=== PATIENT | female | born 1940 | race Caucasian/White ===

== ENCOUNTER 2018-12-15 18:31 | Inpatient (IN) | payer MEDICARE ==
[2018-12-15 19:18] LABS: #Lymphocytes 0.5 thou/uL (1.20-3.40); #Monocytes 0.2 thou/uL (0.11-0.59); #Neutrophils 2.7 thou/uL (1.40-6.50); %Eosinophils 1.2 % (0.0-10.0); %Lymphocytes 14.4 % (21.0-51.0); %Monocytes 4.4 % (0.0-10.0); Hemoglobin 9.1 g/dL (12.0-16.0); Mean Corpuscular HGB CONC 31.1 g/dL (32.0-36.0); Mean Corpuscular Hemoglobin 28.4 pg (27.0-31.0); Mean Corpuscular Volume 91.2 fL (78.0-98.0); Mean Platelet Volume 11.5 fL (7.4-10.4); Platelet Count 27 thou/uL (130-400); RBC Distribution Width 15.8 % (11.5-14.5); White Blood Cell (WBC) Count 3.3 thou/uL (4.8-10.8)
[2018-12-15 19:29] LABS: ALT (SGPT) Less than 7 U/L (8-55); AST (SGOT) 19 U/L (5-34); Albumin 3.3 g/dL (3.4-4.8); Alkaline Phosphatase 69 U/L (40-150); Anion Gap 15 mmol/L (10-20); BUN (Urea Nitrogen) 37 mg/dL (9.8-20.1); Bilirubin, Total 0.6 mg/dL (0.2-1.2); Calc. Creatinine Clearance 0 mL/min (70-130); Calcium 9.7 mg/dL (7.8-10.44); Carbon Dioxide 34 mmol/L (23-31); Chloride 93 mmol/L (98-107); Estimated GFR-MDRD 32; Globulin 3.6 g/dL (2.4-3.5); Glucose 87 mg/dL (83-110); Protein, Total 6.9 g/dL (6.0-8.3); Sodium 138 mmol/L (136-145)
[2018-12-15 19:31] LABS: Reflex for Review?? YES
[2018-12-15 19:32] LABS: Anisocytosis SLIGHT = 6-15 cells (100X) (0-5/hpf); MDiff Complete? YES; Ovalocytes SLIGHT = 2-5 cells (100X) (0-1/hpf); Platelet Morphology Comment Appears Decreased; Polychromasia SLIGHT = 2-3 cells (100X) (0-2/hpf)
[2018-12-16] MEDS ORDERED: Dextrose 5% in Water 1,000 ML IV PRN (00:38)
[2018-12-16] MEDS ORDERED: Ondansetron PF 4 MG/2 ML Vial IVP PRN (00:38)
[2018-12-16] MEDS ORDERED: Acetaminophen 500 MG TAB PO PRN ×2 (00:38→01:43)
[2018-12-16] MEDS ORDERED: hydrALAZINE 20 MG/ML VIAL SLOW IVP PRN (00:38)
[2018-12-16] MEDS ORDERED: Dextrose 50% Abboject 50 ML SYRINGE SLOW IVP PRN (00:38)
[2018-12-16] MEDS ORDERED: Ondansetron ODT 4 MG TAB PO PRN (00:38)
[2018-12-16] MEDS: Sodium Chloride 0.9% 1,000 ML IV SCH ×2 (00:56→10:05)
[2018-12-16 00:59] VITALS: BMI 23.9
[2018-12-16 06:21] LABS: Burr Cells SLIGHT = 2-5 cells (100X) (0-1/hpf); Eosinophils 8 % (0-10); Hemoglobin 8.1 g/dL (12.0-16.0); Hypochromia SLIGHT = 6-15 cells (100X) (0-5/hpf); Lymphocytes 30 % (21-51); MDiff Complete? YES; Mean Corpuscular Hemoglobin 27.5 pg (27.0-31.0); Mean Corpuscular Volume 91.7 fL (78.0-98.0); Mean Platelet Volume 12.2 fL (7.4-10.4); Monocytes 2 % (0-10); Neutrophil 60 % (42-75); Platelet Count 25 thou/uL (130-400); Platelet Morphology Comment Appears Decreased; RBC Distribution Width 15.8 % (11.5-14.5); Red Blood Cell (RBC) Count 2.94 mill/uL (4.20-5.40); White Blood Cell (WBC) Count 2.6 thou/uL (4.8-10.8)
[2018-12-16 06:25] LABS: Reticulocyte Count 1.7 % (0.5-1.5)
[2018-12-16 06:32] LABS: Anion Gap 15 mmol/L (10-20); BUN (Urea Nitrogen) 36 mg/dL (9.8-20.1); Calc. Creatinine Clearance 32 mL/min (70-130); Calcium 8.9 mg/dL (7.8-10.44); Carbon Dioxide 31 mmol/L (23-31); Chloride 98 mmol/L (98-107); Estimated GFR-MDRD 39; Glucose 70 mg/dL (83-110); Iron 42 ug/dL (50-170); Iron Binding Capacity, Total 135 mcg/dL (265-497); Potassium 3.5 mmol/L (3.5-5.1); Sodium 140 mmol/L (136-145)
[2018-12-16 06:35] LABS: Iron 42 ug/dL (50-170); Iron Binding Capacity, Total 133 mcg/dL (265-497)
--- NOTE | 2018-12-16 08:20 | HP ---
PRIMARY CARE PROVIDER: Dr. Mims. CHIEF COMPLAINT: Abnormal labs. HISTORY OF PRESENT ILLNESS: This is a 78-year-old female, who presents to [facility] and transferred from [facility] where the patient is currently receiving physical therapy after a recent hospital stay at [facility] in [place], [place]. The patient apparently was treated for CHF exacerbation and deemed an appropriate candidate for ongoing skilled care. The patient states she has been at the [facility] approximately 2 weeks receiving daily physical therapy. The patient ambulates with use of a rolling walker with some standby assistance. The patient apparently underwent a routine laboratory evaluation with a CBC showing a platelet count of 27,000. The patient with a longstanding history of thrombocytopenia. However, the extent degree are unclear. The patient admits to some easy bruisability and had been taking chronic methotrexate, Plaquenil and aspirin. The patient was recommended to discontinue the medications within the last 24 hours. The patient denies any spontaneous nosebleeds, gum bleeding or blood in the stool. The patient denies any other specific complaints currently. In the emergency room, CBC was performed showing a platelet count of 27, as well as evidence of pancytopenia. The patient was placed on IV fluids and transferred to the medical floor for further evaluation. PAST MEDICAL HISTORY: 1. Chronic anemia/pancytopenia. 2. Chronic thrombocytopenia. 3. Anxiety. 4. History of asthma. 5. Nonischemic cardiomyopathy with ejection fraction in the 30% to 35% range. 6. Chronic kidney disease stage 3. 7. Chronic obstructive pulmonary disease. 8. Diabetes mellitus type 2. 9. Status post blood transfusion after GI bleed. 10. Hyperlipidemia. 11. Hypertension. 12. Status post pacemaker placement. 13. Hypothyroidism. PAST SURGICAL HISTORY: 1. Status post back surgery in 2013. 2. Status post cardiac catheterization with normal coronary anatomy. 3. Status post cataract extraction. 4. Status post section x3. 5. Status post laser right eye surgery due to retinal detachment. 6. Status post foot surgery with bone spur removal. 7. Status post pacemaker placement with subsequent upgrade to biventricular device. 8. Status post open reduction and internal fixation of femur fracture. 9. Status post total knee arthroplasty. CURRENT MEDICATIONS: 1. Lorazepam 0.5 mg p.o. b.i.d. p.r.n. 2. Tessalon Perles 100 mg p.o. q.8 hours p.r.n. 3. Levothyroxine 88 mcg p.o. daily. 4. Alendronate 70 mg p.o. daily. 5. Aspirin 81 mg p.o. daily. 6. Ferrous sulfate 325 mg p.o. daily. 7. Folic acid daily. 8. Trazodone 50 mg 1 tablet p.o. at bedtime. DISCONTINUED MEDICATION: Methotrexate, discontinued. ALLERGIES: 1. TRAMADOL. 2. TYLENOL NO. 3. 3. HYDROCODONE. FAMILY HISTORY: Mother with cancer. Father with myocardial infarction. SOCIAL HISTORY: The patient resides in [place], [place] with her . Accompanied by her daughter in the hospital. Ambulates with the use of a rolling walker. No current alcohol, tobacco, or illicit drug use. REVIEW OF SYSTEMS: CONSTITUTIONAL: Negative for weight loss or gain, ability to conduct usual activities. SKIN: Negative for rash, itching. EYES: Negative for double vision, pain. ENT/MOUTH: Negative for nose bleeding, neck stiffness, pain, tenderness. CARDIOVASCULAR: Negative for palpitations, dyspnea on exertion, orthopnea. RESPIRATORY: Negative for shortness of breath, wheezing, cough, hemoptysis, fever or night sweats. GASTROINTESTINAL: Negative for poor appetite, abdominal pain, heartburn, nausea, vomiting, constipation, or diarrhea. GENITOURINARY: Negative for urgency, frequency, dysuria, nocturia. MUSCULOSKELETAL: Negative for pain, swelling. NEUROLOGIC/PSYCHIATRIC: Negative for anxiety, depression. ALLERGY/IMMUNOLOGIC: Negative for skin rash, bleeding tendency. Otherwise negative except as stated per HPI. PHYSICAL EXAMINATION: VITAL SIGNS: On admission, blood pressure 145/76, pulse 74, respiratory rate 14, temperature 97.9 degrees Fahrenheit, O2 saturation 100% on 2 L/minute by nasal cannula. GENERAL APPEARANCE: This is a 78-year-old female, alert and oriented x3, pleasant, responsive, in no acute distress. HEENT: Pupils are equal, round, reactive to light and accommodation. Extraocular muscles are intact. No scleral icterus. No conjunctival injection. Nares patent, OP is clear. NECK: Supple. No cervical adenopathy. No thyromegaly. No carotid bruits. No JVD appreciated. Cervical spine with full active and passive range of motion. No meningeal signs noted. CHEST: Lungs are clear to auscultation bilaterally. CARDIOVASCULAR: S1,S2 without noted murmur, rub, or gallop. ABDOMEN: Rounded, soft, nontender, and nondistended. Bowel sounds are positive in all 4 quadrants. There is no hepatosplenomegaly. No abdominal bruits. No rebound or guarding appreciated. EXTREMITIES: Warm and dry with fair turgor. No clubbing, cyanosis, or asymmetric edema appreciated. Pulses palpable distally at the dorsalis pedis, posterior tibial, and popliteal arteries bilaterally. Capillary refill less than 2 seconds. NEUROLOGIC: Cranial nerves 2 through 12 are grossly intact. No focal or lateralizing signs appreciated. No acute focal deficits. Chronic left foot drop. PERTINENT LAB AND X-RAY FINDINGS: Sodium 138, potassium 4.0, chloride 93, CO2 of 34, BUN 37, creatinine 1.55, estimated GFR of 32, glucose 87, calcium 9.7. LFTs within normal limits. CBC showed a white blood cell count of 3.3, hemoglobin 9.1, hematocrit 29.2, MCV 91, platelet count 27 with 80% neutrophils. ASSESSMENT/PLAN: 1. Chronic thrombocytopenia. Review of electronic medical record does show a trend of thrombocytopenia greater than 10 years. Suspect current value related to iatrogenic influence in conjunction with methotrexate and aspirin therapy. We will discontinue methotrexate and aspirin. We will consult Hematology Service for any further recommendations. No current evidence to suggest acute or active blood loss. Repeat platelet count in the a.m. 2. Chronic kidney disease stage 3. We will continue intravenous normal saline at 75 mL/hour. Avoid nephrotoxic agents and limit contrast exposure. Repeat creatinine in the a.m. 3. Pancytopenia. Appears chronic in nature. See #1 above. Repeat CBC in the a.m. Check serum iron, TIBC, ferritin, and reticulocyte count. Check stool guaiacs. 4. Hypothyroidism. Resume levothyroxine 88 mcg daily. 5. Prophylaxis. Sequential compression devices while in bed. PT evaluation for functional assessment. Pepcid 20 mg p.o. b.i.d. CODE STATUS: Full. Surrogate medical decision maker is patient's daughter. Job ID: [id number]
[2018-12-16] MEDS: Famotidine 20 MG TAB PO SCH (10:05)
[2018-12-16 12:49] LABS: #Eosinphils 0.1 thou/uL (0.0-0.7); #Lymphocytes 0.4 thou/uL (1.20-3.40); #Monocytes 0.2 thou/uL (0.11-0.59); %Lymphocytes 16.3 % (21.0-51.0); %Monocytes 6.9 % (0.0-10.0); %Neutrophils 73.8 % (42.0-75.0); Anisocytosis SLIGHT = 6-15 cells (100X) (0-5/hpf); Elliptocytes SLIGHT = 2-5 cells (100X) (0-1/hpf); Hemoglobin 8.7 g/dL (12.0-16.0); Hypochromia SLIGHT = 6-15 cells (100X) (0-5/hpf); MDiff Complete? YES; Mean Corpuscular HGB CONC 30.8 g/dL (32.0-36.0); Mean Corpuscular Hemoglobin 28.2 pg (27.0-31.0); Mean Corpuscular Volume 91.3 fL (78.0-98.0); Mean Platelet Volume 11.1 fL (7.4-10.4); Platelet Count 28 thou/uL (130-400); Platelet Morphology Comment Appears Decreased; RBC Distribution Width 15.9 % (11.5-14.5); Red Blood Cell (RBC) Count 3.08 mill/uL (4.20-5.40); White Blood Cell (WBC) Count 2.7 thou/uL (4.8-10.8)
[2018-12-16 13:15] LABS: Vitamin B12 800 pg/mL (211-911)
--- NOTE | 2018-12-16 15:27 | CON ---
DATE OF CONSULTATION: REASON FOR CONSULT: Pancytopenia. HISTORY OF PRESENT ILLNESS: Ms. Fraser is a pleasant 78-year-old female, who is currently residing at [facility] after a hospitalization for congestive heart failure. Routine CBC drawn on december 01 showed a white count of 5.0 with 74% neutrophils, hemoglobin of 8.6, and platelet count of 123,000. She had repeat CBC drawn on December 15, which showed a drop in all counts with white blood cell of 2.4 with 62% neutrophils, 25% lymphocytes. Her hemoglobin was 8.5 and her platelet count was 27,000. She was sent to the emergency room for this abnormal blood count and admitted for further workup. She denies any bleeding. She does admit to easy bruising. The patient's medical history includes lupus, Sjogren's syndrome, and polyarthritis. She has been on Plaquenil for over 15 years and recently completed methotrexate. The patient was admitted for further workup of her pancytopenia. PAST MEDICAL HISTORY: 1. Asthma. 2. Nonischemic cardiomyopathy. 3. Chronic kidney disease. 4. Chronic obstructive pulmonary disease. 5. Diabetes mellitus type 2. 6. Hyperlipidemia. 7. Hypertension. 8. Hypothyroidism. 9. Chronic thrombocytopenia. 10. Anxiety. 11. Anemia. PAST SURGICAL HISTORY: 1. Multiple orthopedic surgeries. 2. Cardiac catheterization. 3. Eye surgery. 4. Pacemaker placement. ALLERGIES: TO TYLENOL, CODEINE, HYDROCODONE, AND TRAMADOL. CURRENT MEDICATIONS: 1. Alendronate sodium daily. 2. Aspirin 81 mg daily. 3. Ferrous sulfate daily. 4. Folic acid daily. 5. Plaquenil 200 mg daily. 6. Levothyroxine daily. 7. Lorazepam b.i.d. 8. Zaroxolyn daily. 9. Metoprolol tartrate daily. 10. Zoloft daily. 11. Zocor daily. 12. Furosemide daily. 13. Trazodone daily. FAMILY HISTORY: Noncontributory. SOCIAL HISTORY: The patient is , lives with her who is currently in rehab as well. No alcohol, tobacco, or illicit drug use. REVIEW OF SYSTEMS: A 10-point review of systems is negative. PHYSICAL EXAMINATION: VITAL SIGNS: Temperature is 97.6, pulse is 79, respiratory rate 18, BP is 145/ 62. She is 100% on 2 L. GENERAL: This is a frail female, in no acute distress. HEENT: Normocephalic, atraumatic. Pupils are equal and reactive to light. NECK: Supple. CV: Regular rate and rhythm. LUNGS: Clear. ABDOMEN: Soft and nontender. Bowel sounds are positive. EXTREMITIES: No clubbing, cyanosis, or edema. SKIN: No rash. HEMATOLOGICAL: There is no petechiae or purpura. NEUROLOGICAL: Nonfocal. PSYCH: The patient is alert, oriented and appropriate. PERTINENT LABS AND X-RAYS: Current WBCs are 2.6, hemoglobin 8.1, hematocrit 27.0, and platelet count is 25,000. She has 60% neutrophils, 30% lymphocytes. Path showed pancytopenia. Retic count is 1.7. Sodium is 140, potassium 3.5, chloride 98, CO2 is 31, BUN is 36, creatinine 1.33, calcium 8.9. Iron is 42, TIBC is 133 , iron saturation is 42%, ferritin is 838, total bilirubin is 0.6, AST is 19, ALT is less than 7, alkaline phosphatase is 69. Serum total protein is 6.9, albumin is 3.3. ASSESSMENT: 1. Acute on Chronic thrombocytopenia. 2. Anemia of chronic disease. 3. Leukopenia. DISCUSSION: Review of electronic medical records shows the patient has been intermittently anemic and thrombocytopenic for over 15 years. However, her baseline platelet count appears to be over 100. She does have a history of platelet clumping although on peripheral smear, there was no evidence of this. There is no evidence of hemolysis, or TTP. Suspect that her recent drops in her WBC and hgb is consumptive due to prolonged illness combined with chronic immunosuppression from Plaquenil and methotrexate. However, this does not explain the substantial drop in platelet count. I will check a B12 level to rule out deficiency, which can certainly cause pancytopenia. Her methotrexate has been stopped. I do not think a bone marrow biopsy is necessary at this time. We will discuss with Dr. Koch. Thank you for the consult. Job ID: [id number] MTDD
[2018-12-16 15:34] LABS: Folate (Folic Acid) Greater than 76.00 ng/mL (7.0-31.4)
--- NOTE | 2018-12-16 16:01 | PDOC.PN ---
- Subjective Encounter Start Date: 12/16/18 Encounter Start Time: 15:59 Ms. Fraser was seen today in follow-up of thrombocytopenia. She does not have any complaints. She admits to having some " gagging episodes" after she eats. This has been a problem for years. she was on a modified consistency diet while at [facility]. - Objective Resuscitation Status - Order Detail: 12/16/18 00:34 Resuscitation Status Routine Resuscitation Status: FULL: Full Resuscitation MAR Reviewed: Yes Vital Signs & Weight: Vital Signs (12 hours) Temp Pulse Resp BP BP Pulse Ox 12/16/18 11:00 97.6 F 79 18 145/62 H 97 12/16/18 08:00 100 12/16/18 04:00 98.0 F 67 20 126/83 100 Weight Admit Weight 126 lb 11.2 oz Weight 126 lb 11.2 oz I&O: 12/15/18 12/16/18 12/17/18 06:59 06:59 06:59 Intake Total 550 Balance 550 Result Diagrams: 12/16/18 12:15 12/16/18 05:37 Additional Labs: Accuchecks 12/16/18 12/16/18 11:33 04:22 POC Glucose 125 H 77 Phys Exam - Physical Examination HEENT: PERRLA Respiratory: no wheezing, no rales, no rhonchi, clear to auscultation bilateral Cardiovascular: RRR, no significant murmur, no rub Gastrointestinal: soft, non-tender, no distention, positive bowel sounds Musculoskeletal: no edema, pulses present Dx/Plan (1) Thrombocytopenia Code(s): D69.6 - THROMBOCYTOPENIA, UNSPECIFIED Status: Acute (2) Dysphagia Code(s): R13.10 - DYSPHAGIA, UNSPECIFIED Status: Acute (3) Pancytopenia Code(s): D61.818 - OTHER PANCYTOPENIA Status: Acute (4) Hypothyroidism Code(s): E03.9 - HYPOTHYROIDISM, UNSPECIFIED Status: Chronic (5) Hypertension Code(s): I10 - ESSENTIAL (PRIMARY) HYPERTENSION Status: Chronic - Plan * Thrombocytopenia- this is in the setting of Pancytopenia- Hematology evaluation is in progress * HTN- blood pressure is stable- will re-start Metoprolol * Hypothyroidism- will re-start Levothyroxine * Pancytopenia- continue as per Hematology. * Dysphagia- discussed with Speech Therapy- likely will get a MBS tomorrow if she has not yet had one.
[2018-12-16] MEDS ORDERED: Benzonatate 100 MG CAP PO PRN (16:04)
[2018-12-16] MEDS: Simvastatin 5 MG TAB PO SCH (20:36)
[2018-12-16] MEDS: traZODone HCl 50 MG TAB PO SCH (20:36)
[2018-12-16] MEDS: Metoprolol Tartrate 50 MG TAB PO SCH (20:36)
[2018-12-17] MEDS: Sodium Chloride 0.9% 1,000 ML IV SCH ×2 (01:01→14:46)
[2018-12-17] MEDS: Levothyroxine Sodium 88 MCG TAB PO SCH (06:42)
[2018-12-17 07:07] LABS: #Lymphocytes 0.4 thou/uL (1.20-3.40); #Monocytes 0.1 thou/uL (0.11-0.59); #Neutrophils 1.2 thou/uL (1.40-6.50); %Basophils 0.5 % (0.0-1.0); %Eosinophils 1.1 % (0.0-10.0); %Lymphocytes 22.2 % (21.0-51.0); %Monocytes 6.8 % (0.0-10.0); %Neutrophils 69.5 % (42.0-75.0); Hemoglobin 7.9 g/dL (12.0-16.0); Mean Corpuscular HGB CONC 31.1 g/dL (32.0-36.0); Mean Corpuscular Hemoglobin 28.2 pg (27.0-31.0); Mean Corpuscular Volume 90.7 fL (78.0-98.0); Mean Platelet Volume 10.2 fL (7.4-10.4); Platelet Count 30 thou/uL (130-400); RBC Distribution Width 15.8 % (11.5-14.5); White Blood Cell (WBC) Count 1.7 thou/uL (4.8-10.8)
[2018-12-17] MEDS ORDERED: Alendronate Sodium 70 mg Tablet PO SCH (09:00)
[2018-12-17] MEDS ORDERED: ASCORBATE CALCIUM PO SCH (09:00)
[2018-12-17] MEDS ORDERED: [UNRECOGNIZED DRUG - OTHER] PO SCH (09:00)
[2018-12-17] MEDS ORDERED: BIOFLAVONOID PO SCH (09:00)
[2018-12-17] MEDS: Aspirin Chewable 81 MG TAB PO SCH (09:34)
[2018-12-17] MEDS: Metoprolol Tartrate 50 MG TAB PO SCH ×2 (09:34→20:32)
[2018-12-17] MEDS: Hydroxychloroquine Sulfate 200 MG TAB PO SCH (09:35)
[2018-12-17] MEDS: Famotidine 20 MG TAB PO SCH (09:35)
[2018-12-17] MEDS: Folic Acid 1 MG TAB PO SCH (09:35)
[2018-12-17] MEDS ORDERED: Dexamethasone 40 MG in Sodium Chloride 0.9% 50 ML IVPB SCH (13:00)
[2018-12-17] MEDS: Dexamethasone 40 MG in Sodium Chloride 0.9% 50 ML IVPB SCH (14:47)
--- NOTE | 2018-12-17 17:55 | PDOC.PN ---
- Subjective Encounter Start Date: 12/17/18 Encounter Start Time: 17:53 Ms. Fraser was seen today in follow-up of thrombocytopenia. She does not have any new complaints. - Objective Resuscitation Status - Order Detail: 12/16/18 00:34 Resuscitation Status Routine Resuscitation Status: FULL: Full Resuscitation MAR Reviewed: Yes Vital Signs & Weight: Vital Signs (12 hours) Temp Pulse Resp BP Pulse Ox 12/17/18 08:14 98.8 F 80 20 128/81 94 L Weight Admit Weight 126 lb 11.2 oz Weight 126 lb 11.2 oz I&O: 12/16/18 12/17/18 12/18/18 06:59 06:59 06:59 Intake Total 550 2420 Balance 550 2420 Result Diagrams: 12/17/18 06:12 12/16/18 05:37 Additional Labs: Accuchecks 12/17/18 12/17/18 12/17/18 16:55 11:21 09:19 POC Glucose 103 85 64 L 12/17/18 12/16/18 05:29 20:01 POC Glucose 84 81 Phys Exam - Physical Examination HEENT: PERRLA Respiratory: no wheezing, no rales, no rhonchi, clear to auscultation bilateral Cardiovascular: RRR, no significant murmur, no rub Gastrointestinal: soft, non-tender, no distention, positive bowel sounds Musculoskeletal: pulses present, edema present + scattered bruising Dx/Plan (1) Thrombocytopenia Code(s): D69.6 - THROMBOCYTOPENIA, UNSPECIFIED Status: Acute (2) Dysphagia Code(s): R13.10 - DYSPHAGIA, UNSPECIFIED Status: Acute (3) Pancytopenia Code(s): D61.818 - OTHER PANCYTOPENIA Status: Acute (4) Hypothyroidism Code(s): E03.9 - HYPOTHYROIDISM, UNSPECIFIED Status: Chronic (5) Hypertension Code(s): I10 - ESSENTIAL (PRIMARY) HYPERTENSION Status: Chronic - Plan * Thrombocytopenia- Hematology input appreciated. Thought to be due to ITP * She has been started on Decadron * HTN- blood pressure is stable * Continue PT/OT for reconditioning .
[2018-12-17] MEDS: traZODone HCl 50 MG TAB PO SCH (20:32)
[2018-12-17] MEDS: Simvastatin 5 MG TAB PO SCH (20:38)
[2018-12-18] MEDS: Sodium Chloride 0.9% 1,000 ML IV SCH ×2 (03:50→07:42)
[2018-12-18] MEDS: Levothyroxine Sodium 88 MCG TAB PO SCH (05:49)
[2018-12-18] MEDS: Aspirin Chewable 81 MG TAB PO SCH (07:41)
[2018-12-18] MEDS: Famotidine 20 MG TAB PO SCH (07:41)
[2018-12-18] MEDS: Folic Acid 1 MG TAB PO SCH (07:41)
[2018-12-18] MEDS: Hydroxychloroquine Sulfate 200 MG TAB PO SCH (07:41)
[2018-12-18] MEDS: Metoprolol Tartrate 50 MG TAB PO SCH ×2 (07:42→21:06)
[2018-12-18 08:16] LABS: #Lymphocytes 0.2 thou/uL (1.20-3.40); #Neutrophils 0.9 thou/uL (1.40-6.50); %Lymphocytes 15.4 % (21.0-51.0); %Monocytes 0.8 % (0.0-10.0); %Neutrophils 83.8 % (42.0-75.0); Hemoglobin 7.6 g/dL (12.0-16.0); Mean Corpuscular HGB CONC 30.4 g/dL (32.0-36.0); Mean Corpuscular Hemoglobin 28.4 pg (27.0-31.0); Mean Corpuscular Volume 93.4 fL (78.0-98.0); Mean Platelet Volume 10.9 fL (7.4-10.4); Platelet Count 34 thou/uL (130-400); RBC Distribution Width 15.9 % (11.5-14.5); Red Blood Cell (RBC) Count 2.67 mill/uL (4.20-5.40); White Blood Cell (WBC) Count 1.1 thou/uL (4.8-10.8)
[2018-12-18] MEDS: Dexamethasone 40 MG in Sodium Chloride 0.9% 50 ML IVPB SCH (12:55)
--- NOTE | 2018-12-18 13:42 | PDOC.PN ---
- Subjective Encounter Start Date: 12/18/18 Encounter Start Time: 13:41 Patient seen and examined. No new complaints. No overnight events. feeling better. No bleeding reported. no rash or fever or chills. no N/V. she is not happy with pureed diet. - Objective Resuscitation Status - Order Detail: 12/16/18 00:34 Resuscitation Status Routine Resuscitation Status: FULL: Full Resuscitation MAR Reviewed: Yes Vital Signs & Weight: Vital Signs (12 hours) Temp Pulse Resp BP Pulse Ox 12/18/18 07:47 94 L 12/18/18 07:33 97.8 F 65 19 132/64 100 12/18/18 04:53 97.8 F 65 16 107/65 99 12/18/18 02:47 99 Weight Admit Weight 126 lb 11.2 oz Weight 126 lb 11.2 oz I&O: 12/17/18 12/18/18 12/19/18 06:59 06:59 06:59 Intake Total 2420 Balance 2420 Result Diagrams: 12/18/18 07:57 12/16/18 05:37 Additional Labs: Accuchecks 12/18/18 12/18/18 12/18/18 11:27 09:10 04:46 POC Glucose 263 H 243 H 315 H 12/17/18 16:55 POC Glucose 103 Phys Exam - Physical Examination Constitutional: NAD HEENT: sclera anicteric Neck: supple Respiratory: no wheezing, no rales Cardiovascular: RRR Gastrointestinal: soft Musculoskeletal: no edema Neurological: non-focal Psychiatric: normal affect, A&O x 3 Skin: no rash Dx/Plan (1) Diabetes mellitus type 2 in nonobese Code(s): E11.9 - TYPE 2 DIABETES MELLITUS WITHOUT COMPLICATIONS Status: Acute (2) Dysphagia Code(s): R13.10 - DYSPHAGIA, UNSPECIFIED Status: Acute (3) Pancytopenia Code(s): D61.818 - OTHER PANCYTOPENIA Status: Acute (4) Hypertension Code(s): I10 - ESSENTIAL (PRIMARY) HYPERTENSION Status: Chronic (5) Hypothyroidism Code(s): E03.9 - HYPOTHYROIDISM, UNSPECIFIED Status: Chronic - Plan cont current plan of care, PT/OT, director social, speech therapy, DVT proph w/ SCDs * . on decadron monitor CBC appreciate hem input will avoid heparin continue pureed diet f/u with Speech therapy recs AM labs.
[2018-12-18] MEDS: traZODone HCl 50 MG TAB PO SCH (21:05)
[2018-12-18] MEDS: HumaLOG 300 UNITS/3 ML VIAL SC PRN (21:06)
[2018-12-18] MEDS: Lorazepam 0.5 MG TAB PO PRN (21:06)
[2018-12-18] MEDS: Simvastatin 5 MG TAB PO SCH (21:23)
[2018-12-19] MEDS: HumaLOG 300 UNITS/3 ML VIAL SC PRN ×2 (05:36→20:40)
[2018-12-19] MEDS: Levothyroxine Sodium 88 MCG TAB PO SCH (05:36)
[2018-12-19 06:44] LABS: #Lymphocytes 0.2 thou/uL (1.20-3.40); #Neutrophils 1.2 thou/uL (1.40-6.50); %Eosinophils 0.4 % (0.0-10.0); %Monocytes 1.8 % (0.0-10.0); %Neutrophils 83.9 % (42.0-75.0); Hemoglobin 7.6 g/dL (12.0-16.0); Mean Corpuscular HGB CONC 30.6 g/dL (32.0-36.0); Mean Corpuscular Hemoglobin 28.5 pg (27.0-31.0); Mean Platelet Volume 10.6 fL (7.4-10.4); Platelet Count 50 thou/uL (130-400); RBC Distribution Width 16.3 % (11.5-14.5); Red Blood Cell (RBC) Count 2.66 mill/uL (4.20-5.40); White Blood Cell (WBC) Count 1.5 thou/uL (4.8-10.8)
[2018-12-19 06:48] LABS: Anion Gap 12 mmol/L (10-20); BUN (Urea Nitrogen) 38 mg/dL (9.8-20.1); Calc. Creatinine Clearance 38 mL/min (70-130); Calcium 7.8 mg/dL (7.8-10.44); Carbon Dioxide 24 mmol/L (23-31); Chloride 102 mmol/L (98-107); Estimated GFR-MDRD 47; Glucose 194 mg/dL (83-110); Potassium 4.2 mmol/L (3.5-5.1); Sodium 134 mmol/L (136-145)
[2018-12-19] MEDS: Famotidine 20 MG TAB PO SCH (08:51)
[2018-12-19] MEDS: Metoprolol Tartrate 50 MG TAB PO SCH ×2 (08:51→20:38)
[2018-12-19] MEDS: Hydroxychloroquine Sulfate 200 MG TAB PO SCH (08:52)
[2018-12-19] MEDS: Aspirin Chewable 81 MG TAB PO SCH (08:52)
[2018-12-19] MEDS: Folic Acid 1 MG TAB PO SCH (08:52)
--- NOTE | 2018-12-19 11:54 | PDOC.PN ---
- Subjective Encounter Start Date: 12/19/18 Encounter Start Time: 11:52 Patient seen and examined. No new complaints. No overnight events feeling better. No bleeding or rash reported. - Objective Resuscitation Status - Order Detail: 12/16/18 00:34 Resuscitation Status Routine Resuscitation Status: FULL: Full Resuscitation MAR Reviewed: Yes Vital Signs & Weight: Vital Signs (12 hours) Temp Pulse Resp BP Pulse Ox 12/19/18 08:54 98 12/19/18 07:24 98.1 F 66 16 115/56 L 98 Weight Admit Weight 126 lb 11.2 oz Weight 126 lb 11.2 oz I&O: 12/18/18 12/19/18 12/20/18 06:59 06:59 06:59 Intake Total 360 Balance 360 Result Diagrams: 12/19/18 05:51 12/19/18 05:51 Additional Labs: Accuchecks 12/19/18 12/18/18 12/18/18 04:47 19:34 15:15 POC Glucose 234 H 230 H 210 H Phys Exam - Physical Examination Constitutional: NAD HEENT: sclera anicteric Neck: supple Respiratory: no wheezing, no rales Cardiovascular: RRR Gastrointestinal: soft Musculoskeletal: no edema Neurological: non-focal, moves all 4 limbs Psychiatric: normal affect, A&O x 3 Skin: no rash Dx/Plan (1) Diabetes mellitus type 2 in nonobese Code(s): E11.9 - TYPE 2 DIABETES MELLITUS WITHOUT COMPLICATIONS Status: Acute (2) Dysphagia Code(s): R13.10 - DYSPHAGIA, UNSPECIFIED Status: Acute (3) Pancytopenia Code(s): D61.818 - OTHER PANCYTOPENIA Status: Acute (4) Hypertension Code(s): I10 - ESSENTIAL (PRIMARY) HYPERTENSION Status: Chronic (5) Hypothyroidism Code(s): E03.9 - HYPOTHYROIDISM, UNSPECIFIED Status: Chronic - Plan cont current plan of care * . continue decadron appreciate hem input platelets better and Hb stable monitor CBC continue pureed diet. DC planning.
[2018-12-19] MEDS: Dexamethasone 40 MG in Sodium Chloride 0.9% 50 ML IVPB SCH (13:43)
[2018-12-19] MEDS: Simvastatin 5 MG TAB PO SCH (20:37)
[2018-12-19] MEDS: traZODone HCl 50 MG TAB PO SCH (20:38)
[2018-12-19] MEDS: Lorazepam 0.5 MG TAB PO PRN (20:39)
[2018-12-20] MEDS: Levothyroxine Sodium 88 MCG TAB PO SCH (05:42)
[2018-12-20] MEDS: HumaLOG 300 UNITS/3 ML VIAL SC PRN ×2 (05:43→20:48)
[2018-12-20 06:26] LABS: #Lymphocytes 0.2 thou/uL (1.20-3.40); #Neutrophils 0.9 thou/uL (1.40-6.50); %Eosinophils 0.3 % (0.0-10.0); %Lymphocytes 20.1 % (21.0-51.0); %Monocytes 1.2 % (0.0-10.0); %Neutrophils 78.4 % (42.0-75.0); Hemoglobin 7.6 g/dL (12.0-16.0); Mean Corpuscular HGB CONC 30.9 g/dL (32.0-36.0); Mean Corpuscular Hemoglobin 28.6 pg (27.0-31.0); Mean Corpuscular Volume 92.5 fL (78.0-98.0); Mean Platelet Volume 10.4 fL (7.4-10.4); Platelet Count 62 thou/uL (130-400); RBC Distribution Width 16.7 % (11.5-14.5); Red Blood Cell (RBC) Count 2.64 mill/uL (4.20-5.40); White Blood Cell (WBC) Count 1.1 thou/uL (4.8-10.8)
[2018-12-20] MEDS: Hydroxychloroquine Sulfate 200 MG TAB PO SCH (09:02)
[2018-12-20] MEDS: Metoprolol Tartrate 50 MG TAB PO SCH ×2 (09:02→20:41)
[2018-12-20] MEDS: Famotidine 20 MG TAB PO SCH (09:02)
[2018-12-20] MEDS: Folic Acid 1 MG TAB PO SCH (09:02)
[2018-12-20] MEDS: Aspirin Chewable 81 MG TAB PO SCH (09:02)
[2018-12-20] MEDS: Lorazepam 0.5 MG TAB PO PRN (13:13)
[2018-12-20] MEDS: Dexamethasone 40 MG in Sodium Chloride 0.9% 50 ML IVPB SCH (15:01)
--- NOTE | 2018-12-20 20:24 | PDOC.PN ---
- Subjective Encounter Start Date: 12/20/18 Encounter Start Time: 11:45 Doing generally well. No new complaints. Concerned about her discharge. Says her daughter is mad at her. Daughter won't take her back to [facility]. Not sure she will be able to get back into [facility]. - Objective Resuscitation Status - Order Detail: 12/16/18 00:34 Resuscitation Status Routine Resuscitation Status: FULL: Full Resuscitation Vital Signs & Weight: Vital Signs (12 hours) Temp Pulse Resp BP Pulse Ox Pulse Ox Pulse Ox 12/20/18 19:43 97.6 F 67 16 130/60 95 12/20/18 10:24 99 98 12/20/18 09:05 95 Weight Admit Weight 126 lb 11.2 oz Weight 126 lb 11.2 oz I&O: 12/19/18 12/20/18 12/21/18 06:59 06:59 06:59 Intake Total 360 1030 780 Balance 360 1030 780 Result Diagrams: 12/20/18 05:50 12/19/18 05:51 Additional Labs: Accuchecks 12/20/18 12/20/18 12/20/18 16:26 11:36 04:40 POC Glucose 164 H 152 H 185 H Phys Exam - Physical Examination Constitutional: NAD Pale. Respiratory: no wheezing, no rales, no rhonchi, clear to auscultation bilateral Cardiovascular: RRR, no significant murmur, no rub Gastrointestinal: soft, non-tender, no distention, positive bowel sounds Musculoskeletal: no edema Neurological: non-focal Psychiatric: normal affect, A&O x 3 Dx/Plan (1) Thrombocytopenia Code(s): D69.6 - THROMBOCYTOPENIA, UNSPECIFIED Status: Acute (2) Pancytopenia Code(s): D61.818 - OTHER PANCYTOPENIA Status: Acute (3) Dysphagia Code(s): R13.10 - DYSPHAGIA, UNSPECIFIED Status: Acute (4) Diabetes mellitus type 2 in nonobese Code(s): E11.9 - TYPE 2 DIABETES MELLITUS WITHOUT COMPLICATIONS Status: Acute (5) Hypothyroidism Code(s): E03.9 - HYPOTHYROIDISM, UNSPECIFIED Status: Chronic (6) Hypertension Code(s): I10 - ESSENTIAL (PRIMARY) HYPERTENSION Status: Chronic - Plan * Responded well to the Decadron. Last dose today. * Platelets are better. * OK with Onc for discharge. * Case Management to work with her for disposition.
[2018-12-20] MEDS: traZODone HCl 50 MG TAB PO SCH (20:40)
[2018-12-20] MEDS: Simvastatin 5 MG TAB PO SCH (20:40)
[2018-12-20] MEDS ORDERED: Lorazepam 0.5 MG TAB PO SCH (20:45)
[2018-12-21] MEDS: Levothyroxine Sodium 88 MCG TAB PO SCH (05:57)
[2018-12-21] MEDS: HumaLOG 300 UNITS/3 ML VIAL SC PRN (05:57)
[2018-12-21 06:46] LABS: #Lymphocytes 0.3 thou/uL (1.20-3.40); #Monocytes 0.1 thou/uL (0.11-0.59); #Neutrophils 1.2 thou/uL (1.40-6.50); %Eosinophils 0.7 % (0.0-10.0); %Lymphocytes 18.6 % (21.0-51.0); %Monocytes 4.5 % (0.0-10.0); %Neutrophils 76.2 % (42.0-75.0); Hemoglobin 8.3 g/dL (12.0-16.0); Mean Corpuscular Hemoglobin 28.6 pg (27.0-31.0); Mean Corpuscular Volume 92.2 fL (78.0-98.0); Platelet Count 74 thou/uL (130-400); RBC Distribution Width 16.6 % (11.5-14.5); Red Blood Cell (RBC) Count 2.92 mill/uL (4.20-5.40); White Blood Cell (WBC) Count 1.5 thou/uL (4.8-10.8)
[2018-12-21] MEDS: Metoprolol Tartrate 50 MG TAB PO SCH (08:52)
[2018-12-21] MEDS: Famotidine 20 MG TAB PO SCH (08:52)
[2018-12-21] MEDS: Aspirin Chewable 81 MG TAB PO SCH (08:52)
[2018-12-21] MEDS: Hydroxychloroquine Sulfate 200 MG TAB PO SCH (08:52)
[2018-12-21] MEDS: Folic Acid 1 MG TAB PO SCH (08:52)
--- NOTE | 2018-12-21 11:51 | DIS ---
DATE OF ADMISSION: 12/15/2018 DATE OF DISCHARGE: 12/21/2018 DISCHARGE DISPOSITION: To [facility]. The patient will be followed by Dr. Wahl at the facility. CODE STATUS: Full code. The patient was seen and examined on the day of discharge. Denies any new complaints. No chest pain, shortness of breath or palpitations reported. DIAGNOSTIC TESTS: Platelets on the day of discharge are 74 with hemoglobin 8.3 and WBC 1.5. Creatinine 1.12 with BUN 38, sodium 134, vitamin B12 was 800, folic acid was greater than 76, ferritin was 839, iron was 42, and TIBC 133. Creatinine on admission was 1.55. BRIEF HOSPITAL COURSE: The patient is a 78-year-old female with rheumatoid arthritis, on methotrexate and Plaquenil, as well as chronic pancytopenia, presented to the emergency room for abnormal labs. She was found to have thrombocytopenia with platelet count of 27. She was evaluated by Hematology Service. She received dexamethasone 40 mg daily for 4 days. The last dose was yesterday. She has been [facility] by [facility]. Her platelets have improved to 74 from 28 on admission. Repeat labs next week is recommended. Primary care physician advised to follow. All other home medications were left unchanged. FINAL DIAGNOSES: 1. Thrombocytopenia, probably secondary to chronic immunosuppression from Plaquenil and methotrexate. 2. History of pancytopenia. 3. Anemia secondary to chronic disease. 4. Leukopenia. 5. Swallow dysfunction. Speech therapy recommended puree texture. 6. Diabetes mellitus, type 2. 7. Hypothyroidism. 8. Hypertension. 9. Mild acute kidney injury on chronic kidney disease, stage 3. 10. Mild protein-calorie malnutrition. 11. Codeine, hydrocodone, and tramadol allergy. 12. Osteoporosis. 13. Anxiety. 14. Nonischemic cardiomyopathy. 15. Mild intermittent asthma. 16. Chronic obstructive pulmonary disease. Total time coordinating the discharge of this patient was 34 minutes. Job ID: [id number]
[2018-12-21 14:56] VITALS: BP 150/67; TEMP 98
== END 2018-12-21 16:07 | DRG 809 ==
LOC: ERS 18:31 → 2SW 21:33 → ERHOLD 23:13 → T4-B 12-16 00:18
PROVIDERS: ADMIT Internal Medicine; ATTEND Internal Medicine
DX: D61.811 Other drug-induced pancytopenia (principal); N17.9 Acute kidney failure, unspecified; E44.1 Mild protein-calorie malnutrition; I42.8 Other cardiomyopathies; T37.8X5A Adverse effect of other specified systemic anti-infectives and antiparasitics, initial encounter; T45.1X5A Adverse effect of antineoplastic and immunosuppressive drugs, initial encounter; E03.9 Hypothyroidism, unspecified; N18.3 Chronic kidney disease, stage 3 (moderate); M81.0 Age-related osteoporosis without current pathological fracture; F41.9 Anxiety disorder, unspecified; J45.20 Mild intermittent asthma, uncomplicated; J44.9 Chronic obstructive pulmonary disease, unspecified; I12.9 Hypertensive chronic kidney disease with stage 1 through stage 4 chronic kidney disease, or unspecified chronic kidney disease; E11.22 Type 2 diabetes mellitus with diabetic chronic kidney disease; D63.1 Anemia in chronic kidney disease; Z95.0 Presence of cardiac pacemaker; Z88.6 Allergy status to analgesic agent; Z88.5 Allergy status to narcotic agent; Z79.82 Long term (current) use of aspirin; Z79.899 Other long term (current) drug therapy; Z68.23 Body mass index [BMI] 23.0-23.9, adult
CPT/HCPCS: 36415; 36416; 80048; 80053; 82607; 82728; 82746; 83540; 83550; 85007; 85025; 85027; 85046; 85060; 86850; 86900; 86901; 96360; 96361; J1100; J7050; Q0162

== ENCOUNTER 2019-02-21 08:23 | Day surgery (SDC) | payer MEDICARE ==
[2019-02-18 10:03] VITALS: BMI 22.4
[2019-02-21] MEDS ORDERED: PROPOFOL 200 MG/20 ML VIAL ONE (11:59)
[2019-02-21] MEDS ORDERED: Lidocaine 1% PF 5 ML VIAL ONE (11:59)
--- NOTE | 2019-02-22 09:51 | OP ---
DATE OF PROCEDURE: 02/21/2019 PREPROCEDURE DIAGNOSES: 1. Oropharyngeal dysphagia. 2. Question on modified barium swallow as her snf of possible primary esophageal disorder that study also showed large osteophytes. POSTPROCEDURE DIAGNOSES: 1. Small hiatal hernia. No evidence of Schatzki's ring. 2. Widely patent upper esophageal sphincter. Empiric dilatation performed with 54-[place] Piper dilator. Second look showed no effect. There was no resistance. ANESTHESIA: TIVA. PROCEDURE IN DETAIL: After the patient was informed of risks, benefits, and possible complications of endoscopy including perforation, reaction to medication, and aspiration, informed consent was obtained. The patient was brought to endoscopy suite, where she was sedated in gradual fashion. Once she was comfortable, a bite block was placed inside the orifices. The endoscope was advanced through the esophagus, stomach and the second and third portions of the duodenum, and slowly removed. There was no resistance to passage of the scope from the oropharynx to the esophagus. There was no evidence of proximal esophageal stricture, distal esophageal strictures, about a 3 cm sliding-type hiatal hernia. The stomach was normal in forward and retroflexed views as was the duodenum. With the patient's dysphagia, an empiric trial of dilatation was performed. Second look showing no effect. RECOMMENDATIONS: 1. Consider VitalStim therapy. 2. Continue the antireflux therapy. 3. Continue recommendations from Speech Pathology. Can follow up in my office as needed. I do not think there is any overt medications or treatment that is going to improve her swallowing at this point in time that is mainly going to be an issue with speech pathology and swallowing behavior. Job ID: [id number]
== END 2019-02-21 11:10 | disposition home or self-care (01) ==
LOC: SDC 08:23
PROVIDERS: ATTEND Internal Medicine Gastroenterology
PROC: 0D748ZZ Dilation of Esophagogastric Junction, Via Natural or Artificial Opening Endoscopic (ICD-10-PCS; principal; 2019-02-21)
PROC: 0DJ08ZZ Inspection of Upper Intestinal Tract, Via Natural or Artificial Opening Endoscopic (ICD-10-PCS; 2019-02-21)
DX: R13.12 Dysphagia, oropharyngeal phase (principal); R93.3 Abnormal findings on diagnostic imaging of other parts of digestive tract; K44.9 Diaphragmatic hernia without obstruction or gangrene; I13.0 Hypertensive heart and chronic kidney disease with heart failure and stage 1 through stage 4 chronic kidney disease, or unspecified chronic kidney disease; E11.22 Type 2 diabetes mellitus with diabetic chronic kidney disease; N18.9 Chronic kidney disease, unspecified; I50.9 Heart failure, unspecified; D63.1 Anemia in chronic kidney disease; I48.91 Unspecified atrial fibrillation; I42.9 Cardiomyopathy, unspecified; F32.9 Major depressive disorder, single episode, unspecified; M19.90 Unspecified osteoarthritis, unspecified site; D69.6 Thrombocytopenia, unspecified; Z95.0 Presence of cardiac pacemaker; Z88.5 Allergy status to narcotic agent; Z79.82 Long term (current) use of aspirin; Z79.899 Other long term (current) drug therapy
CPT/HCPCS: 36416; J2001; J2704

== ENCOUNTER 2019-05-21 17:16 | Emergency (ER) | payer MEDICARE ==
--- NOTE | 2019-05-21 18:17 | RAD ---
AP PELVIS: 05/21/19 HISTORY: Fall. Trauma/injury. FINDINGS/IMPRESSION: Pelvis appears intact. Degenerative change at both hips. No evidence of acute fracture identified. POS: AGW
--- NOTE | 2019-05-21 18:17 | RAD ---
LEFT HIP: 05/21/19 HISTORY: Fall with injury/trauma. FINDINGS: Degenerative change at the left hip. No evidence of fracture identified. IMPRESSION: No acute fracture. POS: [facility]
--- NOTE | 2019-05-21 18:41 | CT ---
CT OF BRAIN PERFORMED WITHOUT CONTRAST ENHANCEMENT: 05/21/19 HISTORY: Trauma with pain to left arm. The ventricular and cisternal system shows some mild atrophy. Basal ganglia calcifications are noted. There are no signs of intracerebral hemorrhage or extra-axial fluid collections. The mastoid air ce lls show mucosal change within the left mastoids. The visualized sinuses are clear. IMPRESSION: No acute intracranial abnormalities. POS: [facility]
== END 2019-05-21 19:30 | disposition home or self-care (01) ==
LOC: ERS 17:16
DX: M25.552 Pain in left hip (principal); I11.0 Hypertensive heart disease with heart failure; I50.9 Heart failure, unspecified; J44.9 Chronic obstructive pulmonary disease, unspecified; D64.9 Anemia, unspecified; E11.9 Type 2 diabetes mellitus without complications; E03.9 Hypothyroidism, unspecified; E78.5 Hyperlipidemia, unspecified; F41.9 Anxiety disorder, unspecified; E78.00 Pure hypercholesterolemia, unspecified; W01.0XXA Fall on same level from slipping, tripping and stumbling without subsequent striking against object, initial encounter
CPT/HCPCS: 70450; 72170